=== PATIENT | male | born 1955 | race Two or more races ===

== ENCOUNTER → 2021-06-05 | Outpatient (CLI) | payer OTHER ==
--- NOTE | 2021-06-05 08:20 | RAD ---
EXAM: ULTRASOUND ABDOMEN COMPLETE CLINICAL HISTORY: Reason: GENERALIZED ABDOMINAL PAIN / Spl. Instructions: / History: COMPARISON: None available. TECHNIQUE: Ultrasound of the upper abdomen was performed. FINDINGS: The liver length measures 14.4 cm. The gallbladder is mildly distended. Mild increased echogenicity i dentified in the liver likely hepatic steatosis. No evidence of gallstones. The common bile duct taran ures 5.2 cm in transverse dimension. The spleen measures 9.9 cm in length. The aorta, IVC, pancreas a re not well-visualized due to bowel gas. The right kidney measures 12.2 x 4.5 x 4.8 cm. The left kidn ey 11.3 x 5.0 x 6.1 cm. IMPRESSION: 1. Mild hepatic steatosis. Otherwise unremarkable exam. Electronically signed by: Thomas Sánchez MD (06/05/2021 8:18 AM) [id number]
== END ==
LOC: US 06:29
PROVIDERS: ATTEND Family Medicine
DX: K76.0 Fatty (change of) liver, not elsewhere classified (principal); N32.89 Other specified disorders of bladder
CPT/HCPCS: 76700